=== PATIENT | male | born 1985 | race Caucasian/White ===

== ENCOUNTER 2016-10-27 18:51 | Emergency (ER) | payer SELFPAY ==
[~2016-10-27] VITALS: Ht 180.3 cm; Wt 72.3 kg
[2016-10-27 19:19] VITALS: BP 121/65
[2016-10-27 19:25] LABS: BLOOD UREA NITROGEN 10 mg/dL (7-18)
[2016-10-27 19:35] LABS: ANISOCYTOSIS 1+; HYPOCHROMIA 1+; MICROCYTOSIS 1+; OVALOCYTES 1+; POIKILOCYTOSIS 1+; POLYCHROMASIA 1+; SCHISTOCYTES 1+
[2016-10-27 19:37] LABS: GIANT PLATELETS 1+; LARGE PLATELETS 1+
== END 2016-10-27 19:55 | disposition home or self-care (01) ==
LOC: ED 19:49
DX: J20.8 Acute bronchitis due to other specified organisms (principal)
CPT/HCPCS: 36415; 71010; 80048; 82040; 85025; 93005; 99285; J7512